=== PATIENT | male | born 1945 | race Caucasian/White ===

== ENCOUNTER → 2021-02-05 09:00 | Outpatient (BNVA) | payer OTHER, SELFPAY | PROVIDERS: Family Provider Emergency Medicine Emergency Medical Services; PCP Emergency Medicine Emergency Medical Services; Visit Provider Nurse Practitioner | DX: Z86.73 Personal history of transient ischemic attack (TIA), and cerebral infarction without residual deficits (principal); I99.8 Other disorder of circulatory system; Z87.891 Personal history of nicotine dependence | CPT/HCPCS: 99204 ==

== ENCOUNTER 2021-03-02 13:19 | Outpatient (CLI) | payer OTHER, SELFPAY ==
--- NOTE | 2021-03-02 13:45 | MR_ITS ---
WS: [id number] MRI HEAD WITHOUT CONTRAST TECHNIQUE: Sagittal T1, T2 axial, T2 axial FLAIR, axial and coronal T1 images, axial susceptibility w eighted imaging, axial diffusion weighted images, and coronal T2 images were obtained. CLINICAL INFORMATION: I99.8 - Other disorder of circulatory system COMPARISON: None. FINDINGS: No evidence of restricted diffusion to suggest acute ischemia. Ventricular system and basal cisterns are patent. Moderate small vessel changes. Moderate parenchymal volume loss. Small vessel changes in the cralos. A few tiny chronic lacunar infarcts in cerebellum. Normal vascular flow voids at the skull base. No e xtra-axial fluid collections. No evidence of mass or mass effect. Mild mucosal thickening in the para nasal sinuses. Mastoid air cells well aerated. Incidental slightly low-lying cerebellar tonsils. Norm al fourth ventricle. No hemosiderin on susceptibly weighted images. Normal optic chiasm and pituitary infundibulum. Moderate symmetric atrophy of the temporal lobes and hippocampal formations. MR/MR head wo con* [id number] IMPRESSION: 1. No evidence of restricted diffusion to suggest acute ischemia. 2. Moderate small vessel changes with moderate parenchymal volume loss. 3. A few tiny chronic lacunar infarcts in the cerebellum. Small vessel changes in the carlos. 4. No hemosiderin on susceptibly weighted images. 5. Moderate symmetric atrophy temporal lobes and hippocampal formations. 6. No other significant findings.
--- NOTE | 2021-03-02 13:45 | MR_ITS ---
WS: [id number] MRA HEAD TECHNIQUE: Axial 3-D TOF images obtained with axial images and axial, sagittal, and coronal 2-D refor matted images. CLINICAL INFORMATION: I99.8 - Other disorder of circulatory system COMPARISON: None. FINDINGS: Dominant left vertebral artery. Poor flow in the tiny right distal vertebral artery. Basilar artery i s patent. Normal vascularity to the DIRECTOR OF PSYCHIATRY territory bilaterally. Both ICAs are patent at the skull base. Mild intracranial atheromatous disease. Mild stenosis right M1 segment. No flow-limiting stenosis. Normal vascularity to the CORNEL and MCA territories bilaterally. MR/MR angio head wo con [id number] IMPRESSION: 1. Dominant distal left vertebral artery. Poor flow in the tiny distal right v ertebral artery. 2. Mild stenosis right proximal M1 segment. 3. No evidence of flow-limiting stenosis or aneurysm. 4. Mild intracranial atheromatous disease.
== END 2021-03-02 13:20 | disposition home or self-care (01) ==
LOC: RADSHAW 13:23
PROVIDERS: PCP Emergency Medicine Emergency Medical Services; Visit Provider Nurse Practitioner
DX: I99.8 Other disorder of circulatory system (principal); G31.9 Degenerative disease of nervous system, unspecified; I63.81 Other cerebral infarction due to occlusion or stenosis of small artery; I70.8 Atherosclerosis of other arteries
CPT/HCPCS: 70544; 70551

== ENCOUNTER 2022-07-19 11:44 | Emergency (ER) | payer OTHER, SELFPAY ==
[2022-07-19 11:59] VITALS: BP 115/57; PULSE 115; TEMP 36.5; O2SAT 92; BMI 25.8
[2022-07-19 13:02] LABS: Basophils % 0.6 %; Eosinophils # 0.1 10^3/uL (0.0-0.8); Eosinophils % 1.2 %; Hematocrit 39.3 % (42.0-52.0); Lymphocytes # 0.9 10^3/uL (0.8-4.8); Mean Corpuscular HGB Conc 30.5 g/dL (30.0-36.0); Mean Corpuscular Hemoglobin 26.3 pg (28.0-34.0); Mean Platelet Volume 9.9 fL (7.4-10.4); Monocytes # 0.8 10^3/uL (0.2-0.9); Monocytes % 10.5 %; Neutrophils # 5.35 10^3/uL (1.8-7.7); Neutrophils % 74.3 %; Nucleated Red Blood Cells % 0 %; Platelet Count 260 10^3/cmm (130-400); Red Blood Count 4.57 10^6/uL (4.1-5.3); Red Cell Distribution Width 16.2 % (12.1-15.1); White Blood Count 7.2 10^3/uL (4.0-10.0)
[2022-07-19 13:13] LABS: INR 1.96 (0.8-1.2)
[2022-07-19 13:14] LABS: Partial Thromboplastin Time 29.5 SECONDS (23.9-36.7)
--- NOTE | 2022-07-19 13:34 | ED_ITS ---
HPI - General Adult General: Chief complaint: General Medical Stated complaint: Cough up blood, blisters on both legs Time Seen by Provider: 07/19/22 13:25 Source: patient Mode of arrival: ambulatory History of Present Illness: 76-year-old male presents emergency room initially started outlying several complaints with Dr. Rizzo basically comes down to is a poorly compensated congestive heart failure. He is on Coumadin for atrial fibrillation over the last year he has intermittently had blood-tinged mucus he has never had that evaluated. He did state he had his INR checked today. He denies any chest pain he is noticing increased swelling in his legs up to the level of the scrotum Shortness of breath with relatively minimal activity Onset (ago): month(s) Severity: moderate Quality: aching Relieving factors: none Exacerbating factors: none Associated symptoms: Reports cough and short of breath; Deny chest pain, confusion, diaphoresis, decreased appetite, dyspnea, fevers/chills, headache(s), malaise, nausea, rash, palpitations, seizures, sync ope, vomiting or weakness Review of Systems Const: Denies: fever(s), chills, fatigue, malaise or diaphoresis ENMT: Denies: throat pain, ear or mastoid pain, nasal discharge or nasal congestion Card: Denies: chest pain, palpitations or syncope Resp: Denies: dyspnea, productive cough, non-productive cough or wheezing GI: Denies: abdominal pain, nausea or vomiting : Denies: flank pain, difficulty urinating, dysuria, urinary frequency or urinary urgency Skin/Breast: Denies: rash or pruritus Neuro: Denies: headache(s) or confusion [facility] ED PFSH: Medical History TIA (transient ischemic attack) Social History Smoking and tobacco status: former smoker History of recent travel: No Physical Exam Const: COMMON NORMALS: no acute distress GENERAL APPEARANCE: cooperative and comfortable ORIENTATION/CONSCIOUSNESS: Yes awake, Yes oriented to person, Yes oriented to place and Yes oriented to time HENMT: COMMON NORMALS: normocephalic, atraumatic and hearing grossly normal bilaterally HEAD & SCALP: normocephalic and atraumatic Resp: COMMON NORMALS: normal respiratory effort, No retractions, No use of accessory muscles and clear to auscultation bilaterally AUSCULTATION: clear to auscultation bilaterally Cardio: COMMON NORMALS: regular rate, regular rhythm and No murmurs present (Cardio) RATE: regular rate RHYTHM: regular rhythm GI: COMMON NORMALS: Soft to palpation and No hepatosplenomegaly present AUSCULTATION: Yes normoactive bowel sounds PALPATION: Yes Soft to palpation, No Tenderness to palpation present (GI), No Guarding due to palpation present (GI) and Yes No hepatosplenomegaly present Extremity: COMMON NORMALS: normal to inspection, capillary refill normal, no clubbing, cyanosis or edema and no calf tenderness GENERAL: Yes edema OTHER: Presacral edema Neuro: SENSORIUM/ORIENTATION: Yes oriented to person, Yes oriented to place and Yes oriented to time Skin: COMMON NORMALS: no rashes or lesions noted GENERAL SKIN EXAM: no rashes or lesions noted Course Vital Signs: Vital signs: Vital Signs Temperature 97.7 F 07/19/22 11:59 Pulse Rate 115 H 07/19/22 11:59 Blood Pressure 115/57 07/19/22 11:59 Pulse Oximetry 92 07/19/22 11:59 Oxygen Delivery Me thod 07/19/22 11:59 MDM - General Adult Medical Decision Making Labs imaging and EKG reviewed as found on the chart. No acute ST changes noted on EKG patient significantly fluid overload. He is under coagulated for goal on his INR. Has had hemoptysis for over a year and despite this his hemoglobin is stable. This can be addressed as an outpatient's most pressing need at this poi nt is getting control of his heart failure. Would recommend he decrease his amlodipine to 5 mg daily to also help decrease his swelling increase Lasix to 40 mg daily for the next 3 days and then recheck with his primary care doctor to reevaluate a BMP and make adjustments as needed for his medication list. Medical Records I reviewed the patient's medical records. Lab Data I reviewed the patient's lab results. 07/19/22 12:55 07/19/22 12:55 Radiology Impressions Chest X-Ray 07/19/22 13:36 Impression: 1. Probable cardiomegaly with bilateral pleural effusions. 2. Atherosclerosis. 3. Artificial cardiac valve. Laboratory Results WBC 7.2 10^3/uL (4.0-10.0) 07/19/22 12:55 RBC 4.57 10^6/uL (4.1-5.3) 07/19/22 12:55 Hgb 12.0 g/dL (11.7-16.6) 07/19/22 12:55 Hct 39.3 % (42.0-52.0) L 07/19/22 12:55 MCV 86.0 fl (80-94) 07/19/22 12:55 MCH 26.3 pg (28.0-34.0) L 07/19/22 12:55 MCHC 30.5 g/dL (30.0-36.0) 07/19/22 12:55 RDW 16.2 % (12.1-15.1) H 07/19/22 12:55 Plt Count 260 10^3/cmm (130-400) 07/19/22 12:55 MPV 9.9 fL (7.4-10.4) 07/19/22 12:55 Neut % (Auto) 74.3 % 07/19/22 12:55 Lymph % (Auto) 13.0 % 07/19/22 12:55 [place] % (Auto) 10.5 % 07/19/22 12:55 Eos % (Auto) 1.2 % 07/19/22 12:55 Baso % (Auto) 0.6 % 07/19/22 12:55 Neut # (Auto) 5.35 10^3/uL (1.8-7.7) 07/19/22 12:55 Lymph # (Auto) 0.9 10^3/uL (0.8-4.8) 07/19/22 12:55 [place] # (Auto) 0.8 10^3/uL (0.2-0.9) 07/19/22 12:55 Eos # (Auto) 0.1 10^3/uL (0.0-0.8) 07/19/22 12:55 Baso # (Auto) 0.0 10^3/uL (0.0-0.1) 07/19/22 12:55 Nucleated RBC % (auto) 0 % 07/19/22 12:55 Nucleated RBCs # 0.0 /100WBC 07/19/22 12:55 PT 22.60 SECONDS (12.1-14.9) H 07/19/22 12:55 INR 1.96 (0.8-1.2) H 07/19/22 12:55 APTT 29.5 SECONDS (23.9-36.7) 07/19/22 12:55 Sodium 140 mmol/L (136-145) 07/19/22 12:55 Potassium 4.5 mmol/L (3.5-5.1) 07/19/22 12:55 Chloride 104 mmol/L (98-107) 07/19/22 12:55 Carbon Dioxide 30 mmol/L (22-29) H 07/19/22 12:55 Anion Gap 10.5 (5-19) 07/19/22 12:55 BUN 28 mg/dL (8-23) H 07/19/22 12:55 Creatinine 1.2 mg/dL (0.7-1.2) 07/19/22 12:55 GFR Calculation Not Reportable 07/19/22 12:55 Glucose 150 mg/dL (65-115) H 07/19/22 12:55 Calculated Osmolality 298 mOsm/kg (285-295) H 07/19/22 12:55 Calcium 8.1 mg/dL (8.5-10.5) L 07/19/22 12:55 Total Bilirubin 0.6 mg/dL (0.15-1.2) 07/19/22 12:55 AST 31 U/L (0-40) 07/19/22 12:55 ALT 18 U/L (0-41) 07/19/22 12:55 Alkaline Phosphatase 94 U/L (40-130) 07/19/22 12:55 NT-Pro-B Natriuret Pep 1345 pg/mL (0-450) H 07/19/22 12:55 Total Protein 4.9 g/dL (6.6-8.7) L 07/19/22 12:55 Albumin 2.7 g/dL (3.5-5.2) L 07/19/22 12:55 Globulin 2.2 g/dL (1.3-4.6) 07/19/22 12:55 Urine Color Yellow (Yellow) 07/19/22 14:00 Urine Appearance Clear (CLEAR) 07/19/22 14:00 Urine pH 5 (5-7) 07/19/22 14:00 Ur Specific Howard 1.020 (1.005-1.030) 07/19/22 14:00 Urine Protein Neg (Negative) 07/19/22 14:00 Urine Glucose (UA) Norm (Normal) 07/19/22 14:00 Urine Ketones Negative (Negative) 07/19/22 14:00 Urine Blood Neg (Negative) 07/19/22 14:00 Urine Nitrate Negative (Negative) 07/19/22 14:00 Urine Bilirubin Neg (Negative) 07/19/22 14:00 Urine Urobilinogen 1 mg/dL (Negative) H 07/19/22 14:00 Ur Leukocyte Esterase Trace (Negative) H 07/19/22 14:00 Urine RBC None /hpf (0-2) 07/19/22 14:00 Urine WBC None /hpf (0-5) 07/19/22 14:00 Ur Squamous Epith Cells None /hpf (0-5) 07/19/22 14:00 Amorphous Sediment Not Reportable 07/19/22 14:00 Urine Bacteria 4+ /hpf (NONE) H 07/19/22 14:00 Hyaline Casts Too numerous to cnt /lpf H 07/19/22 14:00 Discharge Plan Discharge Patient Disposition: Home Clinical Impression: Congestive heart failure (CHF) Condition: Stable Prescriptions: Changed amlodipine 10 mg tablet 5 mg PO DAILY Qty: 30 0RF furosemide 20 mg tablet 40 mg PO QAM Qty: 60 0RF No Action glipizide 5 mg tablet 5 mg PO BID latanoprost 0.005 % drops 1 drp ophthalmic (eye) DAILY metoprolol tartrate 100 mg tablet 100 mg PO BID warfarin 2 mg tablet 2 mg PO DAILY Rx Instructions: take four tab by mouth every monday and take three tab all other days lisinopril 40 mg tablet 40 mg PO DAILY tamsulosin 0.4 mg capsule 0.4 mg PO DAILY atorvastatin [Lipitor] 40 mg tablet 40 mg PO DAILY Qty: 30 3RF Discharge Orders: Discharge ED (Routine); Ordered 07/19/22 Ordered By: Ehsan James Referrals: Sabas Merida, [Primary Care Provider] - Patient Instructions: Opioid Safety, Pain Management Activity Restrictions/Additional Instructions: You are seen today for slight hemoptysis shortness of breath and swelling. You are in poorly compensated heart failure. Would decrease your amlodipine to 5 mg daily and increase your Lasix to 40 mg daily for the next 3 days at that point you should follow-up with your primary care doctor for repeat BMP and reassessment of your medication regimen. Your INR checked today and was slightly subtherapeutic do not recommend any change at this time. Coding Level of Care Code ED Local City Driver for Chg Fwd Exam Detailed
--- NOTE | 2022-07-19 13:36 | XR_ITS ---
WS: [id number] Portable AP upright chest, 07/19/2022 Clinical Data: dyspnea/cough Comparison: None. Findings: There are bilateral pleural effusions with more on the left than the right. The heart is pr obably enlarged. Midline sternotomy sutures are present along with an artificial valve. The aortic ar ch shows calcification. There are no nodules or masses in the lungs. XR/XR chest 1V portable [id number] Impression: 1. Probable cardiomegaly with bilateral pleural effusions. 2. Atherosclerosis. 3. Artificial cardiac valve.
[2022-07-19 13:48] LABS: Alanine Aminotransferase 18 U/L (0-41); Albumin Level 2.7 g/dL (3.5-5.2); Alkaline Phosphatase 94 U/L (40-130); Anion Gap 10.5 (5-19); Aspartate Amino Transferase 31 U/L (0-40); Blood Urea Nitrogen 28 mg/dL (8-23); Calcium 8.1 mg/dL (8.5-10.5); Carbon Dioxide 30 mmol/L (22-29); Chloride 104 mmol/L (98-107); Globulin 2.2 g/dL (1.3-4.6); Glucose 150 mg/dL (65-115); NT Pro B Type Natriuretic Pept 1345 pg/mL (0-450); Osmolality Calculated 298 mOsm/kg (285-295); Potassium 4.5 mmol/L (3.5-5.1); Sodium 140 mmol/L (136-145); Total Bilirubin 0.6 mg/dL (0.15-1.2); Total Protein 4.9 g/dL (6.6-8.7)
[2022-07-19 14:08] LABS: Glucose Urine UA Norm (Normal); Ketones Urine Negative (Negative); Protein Urine Neg (Negative); Urine Appearance Clear (CLEAR); Urine Color Yellow (Yellow); pH Urine 5 (5-7)
[2022-07-19 14:09] LABS: Add Urine Microscopic? YES; Bilirubin Urine Neg (Negative); Blood Urine Neg (Negative); Leukocyte Esterase Urine Trace (Negative); Nitrate Urine Negative (Negative); Urobilinogen Urine 1 mg/dL (Negative)
[2022-07-19 14:15] LABS: Add Urine Culture? Yes; Bacteria Urine 4+ /hpf; Hyaline Casts Urine TOO NUMEROUS TO CNT /lpf
[2022-07-19] MEDS: FUROsemide 10 mg/mL SDV 4mL 40 MG IVP (15:22)
== END 2022-07-19 16:31 | disposition home or self-care (01) ==
PROVIDERS: Emergency Provider Family Medicine; PCP Emergency Medicine Emergency Medical Services
DX: I50.9 Heart failure, unspecified (principal); Z79.84 Long term (current) use of oral hypoglycemic drugs; Z79.01 Long term (current) use of anticoagulants; Z86.73 Personal history of transient ischemic attack (TIA), and cerebral infarction without residual deficits; Z87.891 Personal history of nicotine dependence; I48.91 Unspecified atrial fibrillation
CPT/HCPCS: 36415; 71045; 80053; 81001; 83880; 85025; 85610; 85730; 87077; 87086; 87186; 96374; 99284; J1940

== ENCOUNTER → 2022-09-12 12:00 | Outpatient (BNVA) | payer OTHER, SELFPAY | PROVIDERS: PCP Emergency Medicine Emergency Medical Services; Visit Provider Internal Medicine | DX: I05.9 Rheumatic mitral valve disease, unspecified (principal); I48.91 Unspecified atrial fibrillation; I50.9 Heart failure, unspecified; Z87.891 Personal history of nicotine dependence; Z79.01 Long term (current) use of anticoagulants | CPT/HCPCS: 99204 ==

== ENCOUNTER 2022-09-30 07:26 | Outpatient (CLI) | payer OTHER, SELFPAY ==
--- NOTE | 2022-09-30 | ECG_ITS ---
[facility] Test Date: 2022-09-30 Pat Name: Magno Puente Department: Room: Gender: Male Precast Molder: : 1945 Requested By: Fritz Magaña Order Number: [id number] Khadar MD: Ignacia Malin M.D. Interpretive Statements NAME OF STUDY: LEXISCAN SESTAMIBI STRESS TEST INDICATION: Chest Pain PROCEDURE: At the baseline, the EKG revealed atrial fibrillation with rapid ventricular rate. Diffuse nonspecific T wave changes in the inferior and lateral leads. The baseline heart was 120 bpm with a blood pressue of 125/88 mm of Hg Lexiscan was infused over a period of 20 seconds. A total of 0.4 milligrams of Lexiscan was infused. The stress phase was continued for a total of 5 minutes. Heart rate at the end of the stress phase was 137 bpm with a blood pressure 105/58 mm of Hg. The EKG at the peak infusion revealed no significant changes. Sestamibi was injected 20 seconds after the Lexiscan infusion. Heart rate at the end of the recovery phase was 139 bpm with a blood pressure of 178/59 mm of Hg. CONCLUSION: 1. No significant EKG changes with the LexiScan infusion 2. No LexiScan induced chest pain or cardiac arrhythmia 3. Normal blood pressure and heart rate response 4. Sestamibi/sestamibi perfusion scan pending; see separate report. Electronically Signed On 10-03-2022 0:07:24 CDT by Ignacia Malin M.D. [id number]
[2022-09-30 07:55] VITALS: BMI 24.3
--- NOTE | 2022-09-30 07:56 | NMCV_ITS ---
NM vince perf SPECT r/s* [id number] Magno Puente Age: 77 Gender: M : 1945 Exam Date: 09/30/2022 08:39 Ordering Phys: Fritz Magaña M.D ([email or web address]) Technologist: LIZZIE Dunlap Exam Location: [facility] Indications: CHEST PAIN STRESS TEST Please see separate stress test report in [facility] for full findings IMAGE PROTOCOL Rest/Stress 1 Lexiscan Day Radiopharmaceutical Dose (mCi) Administration Site Administered by Rest: Tc-99m 10.9 IV LIZZIE Dunlap Sestamibi Stress:Tc-99m 33.0 IV LIZZIE Dunlap Sestamibi Rest: 30-Sep-2022 60 Discovery 630 Stress: 30-Sep-2022 30 Discovery 630 0.4mg Lexiscan. Images obtained in supine and prone position. SPECT RESULTS Technical Quality: Excellent Raw Data Analysis: Normal Image Corrections: No attenuation or motion correction applied Summed Stress Score: 3 Summed Rest Score: 2 Summed Difference Score: 2 PERFUSION FINDINGS A small area of decreased tracer uptake was noted in the apical lateral segment and LV apex. Some reversibility was noted in the apical lateral region FUNCTIONAL RESULTS (calculated via Gated SPECT) Stress Image LV EF (%): 54 Stress EDV (mL):84 TID: 1.28 Stress ESV (mL):39 FUNCTIONAL FINDINGS: Segmental wall motion analysis revealed diffuse hypokinesia of the septum IMPRESSIONS 1. Myocardial perfusion imaging revealing a small area of decreased tracer uptake in the apical lateral and LV apical segments with some reversibility, suggesting myocardial scarring with ischemia in the distribution of the left circumflex artery. 2. Normal LV ejection fraction of 54%. 3. LV wall motion analysis revealing diffuse hypokinesia of the septum 4. Normal LV volume 5. Elevated transient ischemic dilatation ratio of 1.28 also may suggest endocardial ischemia. Clinical correlation is recommended Dr Ignacia Malin MD FACC (Electronically Signed) Final Date: 30 September 2022 18:27 S
[2022-09-30] MEDS: regadenoson 0.4 Mg/5 ml Syringe IVP (09:41)
[2022-09-30 10:04] VITALS: BP 117/59; PULSE 132
== END 2022-09-30 07:27 | disposition home or self-care (01) ==
LOC: CDL 07:28
PROVIDERS: PCP Emergency Medicine Emergency Medical Services; Visit Provider Internal Medicine
DX: R07.9 Chest pain, unspecified (principal)
CPT/HCPCS: 36415; 78452; 93017; 96374; A9500; J2785

== ENCOUNTER 2022-10-12 10:57 | Outpatient (CLI) | payer OTHER, SELFPAY ==
--- NOTE | 2022-10-12 11:15 | USCV_ITS ---
Magno Puente Age: 77 Gender: M : 1945 Exam Date: 10/12/2022 11:38 Ordering Phys: Fritz Magaña M.D ([email or web address]) Technologist: SUSAN Exam Location: [facility] [place] Indication: SHORTNESS OF BREATH BP: 114 / 60 HR: 88 Rhythm: Atrial fibrillation Technical Quality: Adequate MEASUREMENTS (Male / Female) Normal Values 2D ECHO LVOT Diameter 2.0 cm LV Ejection Fraction MOD 2C 57.0 % LV Ejection Fraction 2C AL 57.0 % LA Diameter 4.9 cm LA Width 3.2 cm LA Height 5.8 cm RA Width 3.8 cm RA Height 5.2 cm Aorta at Sinotubular Diameter 2.3 cm IVC Diameter 2.0 cm M-MODE Aortic Annulus Diameter 2.5 cm LA Ao Ratio MM 2.0 DOPPLER AV Peak Velocity 205.5 cm/s LVOT Peak Velocity 113.0 cm/s AV Area Cont Eq vti 1.6 cm squared AV Area Cont Eq pk 1.7 cm squared MV Peak Velocity 216.0 cm/s MV Area PHT 3.2 cm squared MV E' Velocity 98.5 cm/s Mitral E to MV E' Ratio 20.7 Mitral E to LV E' Lateral Ratio 20.7 Mitral E to LV E' Septal Ratio 20.7 TR Peak Velocity 275.1 cm/s TR Peak Gradient 30.3 mmHg TR Mean Velocity 243.5 cm/s TR Mean Gradient 24.3 mmHg TR Velocity Time Integral 90.3 cm TV Peak E Velocity 95.0 cm/s Right Atrial Pressure 8.0 mmHg Pulmonary Artery Systolic Pressu 38.3 mmHg PV Peak Velocity 94.0 cm/s RV Acceleration Time 0.1 s RV Ejection Time 0.3 s RV AcT/ET 0.3 FINDINGS Left Ventricle Left ventricle is normal in size. LV systolic function is mildly reduced with EF of 40 to 45%. Mild global hypokinesis is seen. Right Ventricle Dilated. 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 Mean gradient across the mitral valve is 7.5mmHg. This is consistent with moderate mitral stenosis. Aortic Valve Aortic valve is thickened. Mild aortic valve stenosis. Mean gradient across the valve of 9 mmHg and aortic valve area of 1.64 cm squared. Mild aortic regurgitation. Tricuspid Valve Mild tricuspid regurgitation. Pulmonary artery systolic pressure is 35 to 40 mmHg. This is consistent with mild pulmonary hypertension. Pulmonic Valve Trace pulmonic regurgitation. Pericardium Pleural effusion noted. Aorta Normal in size IVC Appears to be dilated CONCLUSIONS LV systolic function is mildly reduced with EF of 40 to 45%. Left atrial dilation RV is dilated and appears to be hypokinetic. 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 Mean gradient across mitral valve is 7.5 mmHg. This is consistent with moderate mitral stenosis Mild aortic stenosis. Mild aortic regurgitation Mild tricuspid regurgitation Mild pulmonary hypertension Trace pulmonic regurgitation Pleural effusion is seen. 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 Fritz Magaña MD (Electronically Signed) Final Date: 22 October 2022 09:55 S
== END 2022-10-12 10:58 | disposition home or self-care (01) ==
LOC: RAD 11:00
PROVIDERS: PCP Emergency Medicine Emergency Medical Services; Visit Provider Internal Medicine
DX: R06.02 Shortness of breath (principal); I08.2 Rheumatic disorders of both aortic and tricuspid valves; I27.20 Pulmonary hypertension, unspecified; J90 Pleural effusion, not elsewhere classified
CPT/HCPCS: 93306

== ENCOUNTER 2022-11-24 08:37 | Outpatient (CLI) | payer OTHER, SELFPAY ==
[2022-11-24] VITALS (16 sets, daily range): BP systolic 94–137; BP diastolic 49–82; PULSE 74–101; RESP 13–27; TEMP 36.8; O2SAT 91–96; BMI 22.8
--- NOTE | 2022-11-24 09:00 | XACV_ITS ---
Exam Room: 2 Ht: 175 cm Wt: 70 kg BSA: 1.85 m2 Gender: Male : 1945 Any Known Allergies: No known allergies Exam Priority: Routine Procedure(s): Procedure Description: Diagnostic procedure Procedure Description: Left Heart Catheterization Procedure Description: Coronary Angiography Diagnostic Cath Status: Elective Diagnostic Findings * INDICATION: Dyspnea on exertion/ LV dysfucntion/ abnormal stress test. * No significant disease noted in the Left Main, Left Anterior Descending, Right, or Circumflex coronary arteries. * First Obtuse Marginal Branch Segment: moderate 50% stenosis, KIRAN: 3 flow. * Coronary angiography shows right dominance. Conclusions 1. 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 2. No significant disease noted in the Left Main, Left Anterior Descending, Right, or Circumflex coronary arteries. Recommendations * Aggressive risk factor modification. * Outpatient cardiology follow-up in 2 to 4 weeks. Interventional RX Recommendation: medical therapy and/or counseling Diagnostic RX Recommendation: medical therapy and/or counseling Anticoagulation: Heparin Pressures Phase:Rest AO : 69 / 57 ( 63 ) @ 11:38:00 AM 107 / 63 ( 77 ) @ 11:46:00 AM 109 / 58 ( 75 ) @ 11:46:00 AM LV : 127 / -8 / 20 @ 11:45:00 AM 123 / -8 / 13 @ 11:45:00 AM 127 / -7 / 13 @ 11:46:00 AM Valves Phase:DefaultPhase AV : 20.0 @ 10:54:27 AM 20.0 @ 10:54:27 AM AV Mean Gradient: 19.0 @ 10:54:27 AM Clinical Evaluation EBL: 5mL-10mL Procedural Details Procedure Consent Obtained. Admit Source: Out Patient. Pre-Procedure Time Out. Identified patient by full name and date of as verbalized by the patient/guarantor. Does the consent match the physician's order: Yes. Accurate & Complete Informed Consent: Yes. Inpatient/Outpatient History & Physical on Chart: Yes. If H&P is completed, is and addenduem needed: No; If yes, is the addendum complete: Yes. Visualize and Verify Site with Patient/Guarantor: N/A. Relevant Radiology Images available: Yes. The risks, benefits, and alternatives of sedation and/or procedure were discussed by physician. The patient agrees to continue. Procedure started. [facility] Clinical Fraility Score: 4: Vulnerable. Flash Drier Operator Indications: LV Dysfunction. Chest Pain Symptom Assessment: Typical Angina Symptoms. Correct patient, site and procedure confirmed by cath team. Current diagnosis: LV dysfunction, dyspnea on exertion, abnormal stress test. PERRLA. Strong, equal hand creative services specialist bilaterally. Lungs clear x 5 lobes. IV Site on Arrival: 20 gauge in the right anticubital. IV Fluids: 0.9% NaCl at 75ml/hr. 0 mL infused prior to bed laborer. Pre Procedural Pulses: bilateral posterior tibial was 1+. Pre Procedural Pulses: bilateral dorsalis pedis was 2+. Pre Procedural Pulses: bilateral radial was 3+. Oxygen started at 2liters/min via nasal canula. right radial was prepped with chloroprep then draped in the usual sterile fashion. right groin was prepped with chloroprep then draped in the usual sterile fashion. Physician notified. Baseline sample Acquired. HR: 110 BPM. Physician arrived. Physician scrubbed in. Immediate Pre-Procedure Time Out. Correct Patient: Yes; Correct Procedure: Yes; Correct Site: Yes; Correct Patient Position: Yes; Correct Supplies: Yes; Dried Flammable Prep: Yes; Blood Products Available: No;. Lidocaine 1% infiltrated to the right radial. Arterial access obtained. Hand injection of contrast through sheath. A 5 slovenian TIG catheter in over glidewire. Glidewire out. Multiple views taken of left coronary artery. Catheter redirected to the RCA. Multiple views taken of right coronary artery. Standard exchange wire in through catheter. Catheter seated in left atrium. Wire out. Pullback taken: LA 26/35(24); LV 127/-9,20; Mean: 12mmHg, DFP: 11sec/min; HR: 96 BPM; SpO2: 94%. EDP Sample taken: LV 123/-9,13; HR: 91 BPM; SpO2: 94%. Pullback taken: LV 127/-8,13; AO 107/63(77); Mean: 19mmHg, Peak to Peak: 20mmHg, SEP: 16sec/min; HR: 100 BPM; SpO2: 95%. Catheter out over exchange wire. Physician review of cine films. Standard exchange wire out. Physician scrubbed out. Post Procedure: Pulses reassessed and unchanged. PERRLA. Strong, equal hand creative services specialist bilaterally. No VTE prophylaxis required. Medication's Wasted: Lidocaine 1% = 2 mL. Medication's Wasted: Nitro = 49.8 mg. Medication's Wasted: Heparin = 1000 units. Medication's Wasted: Other = Versed 1 mg. Medication's Wasted: Other = Fentanyl 75mcg. Total IV fluids: 40 mL. Post-op diagnosis: Moderate OM 1 Stenosis, Medical therapy. Complications: None. Estimated blood loss: 5mL-10mL. Responsiveness - Normal response to verbal stimuli; alert and oriented, PERRLA. Airway - Unaffected, no intervention required; spontaneous ventilation. Circulation: W/N/L, pulses unchanged. Nausea/Vomiting: No. A TR Band was successful obtaining hemostatsis at the Right Radial artery insertion site. Procedure completed. Patient transferred by bed to 1st floor. Vital chart was stopped. Access Site Site: Right Radial artery Sheath Size: 6 Fr Hemostasis Method: TR Band Hemostasis Success: Successful Procedure Medications Start: 10:17 AM Stop: 10:17 AM Medication: Versed 1 mg and Fentanyl 25 mcg Route: I.V. Start: 10:29 AM Stop: 10:29 AM Medication: Nitrogylcerin Amount: 200 mcg Route: I.A. Start: 10:37 AM Stop: 10:37 AM Medication: Heparin Amount: 5000 units Route: I.V. I, the attending physician, have reviewed and verified all procedure medications. Yes, all medications given per verbal order History/Risk Factors Hypertension: No Dyslipidemia: No Peripheral Arterial Disease (PAD): No Myocardial Infarction (IA): No Obesity: No Renal Disease: No Tobacco Use: Former Prior Interventions PCI: No CABG: No Valve Surgery: No Report Signatures Finalized by Fritz Magaña MD on 12/08/2022 12:08 PM
[2022-11-24] MEDS: aspirin 325 mg Tablet PO (09:17)
[2022-11-24] MEDS: diphenhydrAMINE 50 mg Capsule PO (09:17)
[2022-11-24 09:22] LABS: Basophils % 0.6 %; Eosinophils # 0.2 10^3/uL (0.0-0.8); Eosinophils % 2.8 %; Hematocrit 41.8 % (42.0-52.0); Hemoglobin 12.7 g/dL (11.7-16.6); Lymphocytes # 1.9 10^3/uL (0.8-4.8); Lymphocytes % 26.2 %; Mean Corpuscular HGB Conc 30.4 g/dL (30.0-36.0); Mean Corpuscular Hemoglobin 26.5 pg (28.0-34.0); Mean Corpuscular Volume 87.1 fl (80-94); Mean Platelet Volume 11.1 fL (7.4-10.4); Monocytes # 0.7 10^3/uL (0.2-0.9); Monocytes % 10.2 %; Neutrophils % 59.8 %; Nucleated Red Blood Cells % 0 %; Platelet Count 214 10^3/cmm (130-400); Red Cell Distribution Width 16.1 % (12.1-15.1); White Blood Count 7.2 10^3/uL (4.0-10.0)
[2022-11-24 09:52] LABS: Anion Gap 15.1 (5-19); Blood Urea Nitrogen 22 mg/dL (8-23); Calcium 9.2 mg/dL (8.5-10.5); Carbon Dioxide 28 mmol/L (22-29); Chloride 105 mmol/L (98-107); Glucose 104 mg/dL (65-115); Osmolality Calculated 302 mOsm/kg (285-295); Potassium 4.1 mmol/L (3.5-5.1); Sodium 144 mmol/L (136-145)
--- NOTE | 2022-11-24 10:16 | W.PM.OPSFHP ---
Same Day Surgery H&P Indication for Procedure/HPI DATE OF PROCEDURE: November 24, 2022 CHIEF COMPLAINT/INDICATIONFOR SURGICAL PROCEDURE: Dyspnea on exertion/ LV dysfucntion/ abnormal stress test PREOP DIAGNOSIS: Dyspnea on exertion/ LV dysfucntion/ abnormal stress test PLANNED PROCEDURE: Operation Date: 11/24/22 10:00 Proposed Procedures p [facility] 49087,I05.9, I48.91, R94.39(Left) - Fritz Magaña M.D Possible percutaneous coronary intervention 77-year-old man medical history of hypertension,atrial fibrillation, bioprosthetic mitral valve replacement has been having worsening dyspnea on exertion. He had echocardiogram done that showed mildly reduced LV systolic function. Stress test was abnormal. Plan for coronary angiogram with possible percutaneous coronary intervention. Medications/Allergies* Home Medications Medication Instructions Recorded Confirmed Type glipizide 5 mg tablet 5 mg PO BID 02/05/21 11/24/22 History latanoprost 0.005 % eye drops 1 drp ophthalmic (eye) DAILY 02/05/21 11/24/22 History lisinopril 40 mg tablet 40 mg PO DAILY 02/05/21 11/24/22 History metoprolol tartrate 100 mg tablet 100 mg PO BID 02/05/21 11/24/22 History tamsulosin 0.4 mg capsule 0.4 mg PO DAILY 02/05/21 11/24/22 History Multivitamin PO 09/12/22 History apixaban 5 mg tablet (Eliquis) 5 mg PO BID 09/12/22 11/24/22 History aspirin 81 mg tablet,delayed 81 mg PO DAILY 09/12/22 11/24/22 History release calcium citrate 315 mg-vitamin D3 1 tab PO DAILY 09/12/22 11/24/22 History 5 mcg (200 unit) tablet (Calcium Citrate + D) pravastatin 40 mg tablet 40 mg PO DAILY 09/12/22 11/24/22 History Allergies/Adverse Reactions Allergy/AdvReac Type Severity Reaction Status Date / Time No Known Allergies Allergy Verified 09/12/22 12:36 Current Medications: Generic Name Dose Route Start Last Admin Trade Name Freq PRN Reason Stop Dose Admin Sodium Chloride 1,000 mls @ 50 mls/hr 11/24/22 09:00 11/24/22 09:17 Sodium Chloride 0.9% IV 11/25/22 04:59 Not Given .Q20H ONE Pertinent History/Comorbid Conditions* Medical History (Updated 09/12/22 @ 13:03 by Fritz Magaña M.D) Atrial fibrillation Congestive heart failure Mitral valve disease TIA (transient ischemic attack) Social History Smoking and tobacco status: former smoker Pertinent Exam Findings alert, oriented x 3, clear to auscultation bilaterally and regular rate & rhythm Conscious Sedation Assessment PATIENT ASSESSED PRIOR TO SEDATION, WITH NO CHANGE NOTED: Yes AIRWAY EVAL/ANESTHESIA PLAN: normal airway, ASA III, Local Anesthesia, Risks, benefits & alternatives of sedation and/or procedure discussed and Patient agrees to continue as planned ADDITIONAL INFORMATION: Moderate sedation Recommendations Surgery/Procedure today (Left heart cath with possible percutaneous coronary intervention) Coding Level of Care Code Acute Code for Chg Fwd Diagnoses
[2022-11-24 12:10] LABS: Glucose Point of Care 89 mg/dL (70-110)
== END 2022-11-24 16:15 | disposition home or self-care (01) ==
LOC: CCL 08:37 → CSU 12:12
PROVIDERS: PCP Emergency Medicine Emergency Medical Services; Visit Provider Internal Medicine
DX: R94.39 Abnormal result of other cardiovascular function study (principal); I11.0 Hypertensive heart disease with heart failure; I48.91 Unspecified atrial fibrillation; Z79.82 Long term (current) use of aspirin; I50.9 Heart failure, unspecified; Z95.3 Presence of xenogenic heart valve; R06.09 Other forms of dyspnea; Z87.891 Personal history of nicotine dependence
CPT/HCPCS: 36415; 36416; 80048; 82962; 85025; 93458; 96365; 99152; 99153; C1769; C1887; C1894; J1644; J2250; J3010; J3490; J7030; Q0163; Q9967

== ENCOUNTER → 2022-11-30 11:04 | Outpatient (BNVA) | payer OTHER, SELFPAY | PROVIDERS: PCP Emergency Medicine Emergency Medical Services; Visit Provider Internal Medicine Pulmonary Disease | DX: J90 Pleural effusion, not elsewhere classified (principal); I05.9 Rheumatic mitral valve disease, unspecified; I48.91 Unspecified atrial fibrillation; I50.9 Heart failure, unspecified; R06.09 Other forms of dyspnea; I27.20 Pulmonary hypertension, unspecified; Z87.891 Personal history of nicotine dependence | CPT/HCPCS: 71046; 99204 ==

== ENCOUNTER → 2022-12-06 12:44 | Outpatient (BNVA) | payer OTHER, SELFPAY | PROVIDERS: PCP Emergency Medicine Emergency Medical Services; Visit Provider Nurse Practitioner Family | DX: I25.10 Atherosclerotic heart disease of native coronary artery without angina pectoris (principal); Z87.891 Personal history of nicotine dependence | CPT/HCPCS: 36415; 80048; 99214 ==

== ENCOUNTER → 2023-01-30 09:05 | Outpatient (BNVA) | payer OTHER, SELFPAY | PROVIDERS: PCP Emergency Medicine Emergency Medical Services; Visit Provider Internal Medicine Pulmonary Disease | DX: J90 Pleural effusion, not elsewhere classified (principal); I50.20 Unspecified systolic (congestive) heart failure; I48.91 Unspecified atrial fibrillation; I05.9 Rheumatic mitral valve disease, unspecified; I27.20 Pulmonary hypertension, unspecified; Z87.891 Personal history of nicotine dependence; Z91.09 Other allergy status, other than to drugs and biological substances | CPT/HCPCS: 99214 ==

== ENCOUNTER → 2023-03-13 14:38 | Outpatient (BNVA) | payer OTHER, SELFPAY | PROVIDERS: PCP Emergency Medicine Emergency Medical Services; Visit Provider Internal Medicine | DX: I05.0 Rheumatic mitral stenosis (principal); I48.91 Unspecified atrial fibrillation; I50.9 Heart failure, unspecified; Z87.891 Personal history of nicotine dependence | CPT/HCPCS: 99214 ==

== ENCOUNTER 2023-03-17 10:13 | Outpatient (CLI) | payer OTHER, SELFPAY ==
--- NOTE | 2023-03-17 10:30 | CT_ITS ---
WS: [id number] CT chest wo con [id number] HISTORY: follow up pleural effusions TECHNIQUE: Axial imaging performed through the thorax. Coronal and sagittal reformats are submitted. All CT scans at [facility] use at least one of these dose optimization techniques: automated exposure control; mA and/or kV adjustment per patient size (includes targeted exams where dose is mat ched to clinical indication); or iterative reconstruction. CONTRAST: None DLP: 243.47 mGy.cm COMPARISON: 08/02/2022 Lungs and central airway: Spiculated subsolid opacification at the RIGHT apex measures 2.1 x 2.1 cm. Similar to the prior study without significant increase in size. Resolved pulmonary edema and atelect asis at the LEFT lung base. Pleura: Small bilateral layering pleural effusions, RIGHT greater than LEFT. Pleural effusions have m oderately improved in size since the prior study. Heart and pericardium: Marked cardiomegaly. Prior mitral valve prosthesis. Prior CABG. No pericardial effusion. There is dense calcification along the aortic valve plane. Mediastinum and ulises: Small mediastinal and hilar lymph nodes. These may be reactive. No obvious prog ression of lymph node burden. Vessels: Moderate atherosclerosis aorta. No aneurysm. Pulmonary arteries mildly dilated. Chest wall and lower neck: Prior CABG. Upper abdomen: Severe atherosclerotic calcification in the splenic artery and cyst suprarenal aorta. Low-attenuation masses associated with the upper pole of each kidney. The largest on the LEFT is 1.2 cm. Cannot be further characterized without IV contrast. These are likely cysts. Osseous structures: L1 compression fracture superior endplate by 10%. IMPRESSION: 1. Small bilateral pleural effusions with moderate improvement since 08/02/2022. 2. Spiculated subsolid opacification RIGHT apex. Subsolid opacification measures 2.1 x 2.1 cm and has not increased in size since the most recent exam. Recommend continued close follow-up to exclude mal ignancy. PET/CT imaging may also be of benefit at this time. Otherwise follow-up chest CT in 3 months . 3. Marked cardiac enlargement and prior CABG. 4. Significant atherosclerosis thoracic and suprarenal aorta and splenic artery.
== END 2023-03-17 10:14 | disposition home or self-care (01) ==
PROVIDERS: PCP Emergency Medicine Emergency Medical Services; Visit Provider Internal Medicine Pulmonary Disease
DX: J90 Pleural effusion, not elsewhere classified (principal)
CPT/HCPCS: 71250; 99214

== ENCOUNTER 2023-04-01 05:34 | Outpatient (CLI) | payer OTHER, SELFPAY ==
--- NOTE | 2023-04-01 07:30 | PETR_ITS ---
PROCEDURE INFORMATION: Exam: PET/CT Skull Base to Mid-thigh Exam date and time: 04/01/2023 8:04 AM Age: 77 years old Clinical indication: Abnormal findings on lung imaging; Additional info: Abnormal finding on lung imaging LABS AND CLINICAL REPORTS: Glucose: 109 mg/dl Treatment strategy for malignancy (PET staging): Initial Staging (PI) TECHNIQUE: Imaging protocol: Following at least four-hour fasting and following the injection of radiopharmaceutical, low dose CT images were obtained. Then, PET images were obtained. Attenuation corrected images were constructed using the CT scan. Fused images of PET and CT were reviewed. The standardized uptake values (SUV) reported below are maximum values within a region of interest, expressed in gm/ml. Exam includes orbital meatal line to mid-thigh. Radiopharmaceutical: 12.05 mCi F-18 FDG (Fluorodeoxyglucose), IV. Time of imaging post radiopharmaceutical administration: 1 hour Injection site: Not specified COMPARISON: Chest x-ray 11/30/2022, CT chest con [id number] 03/17/2023 10:57 AM, CT chest 08/02/2022 FINDINGS: Brain: Visualized brain has normal physiologic uptake. Pharynx: No abnormal uptake. Larynx: No abnormal uptake. Lungs, pleura and trachea: An ill-defined subsolid lobulated nodular density in the right upper lobe is partially obscured by respiratory motion artifact measuring approximately 1.9 x 1.7 cm on series 3, image 42 similar to the prior CT, SUV max 1.4. This nodule is characterized primarily by ground-glass density with a small, approximately 5 mm solid component at its lateral aspect. This nodule similar in appearance since at least 08/02/2022 allowing for slight differences in measurement technique between the current and prior exams. Similar moderate large right and moderate left pleural effusions. A left lower lobe calcified granuloma is noted. Heart: Normal physiologic uptake. A prosthetic mitral valve is present. Mediastinal space: No abnormal uptake. Liver: No abnormal uptake. Gallbladder and bile ducts: No abnormal uptake. Pancreas: No abnormal uptake. Spleen: No abnormal uptake. Adrenal glands: No abnormal uptake. Kidneys and ureters: Normal physiologic uptake. There are rounded low-density non radiotracer avid structures in the bilateral kidneys compatible with simple cysts for example arising from the posterior left renal inferior pole measuring 2.1 cm in diameter on series 3, image 99. Stomach and bowel: No abnormal uptake. Intraperitoneal and retroperitoneal spaces: There is a small amount of free fluid in the pelvis. Reproductive: Moderate prominence of the prostate gland without elevated uptake. Vasculature: No abnormal uptake. There are diffuse atherosclerotic changes. Lymph nodes: No abnormal uptake. Mildly prominent mediastinal lymph nodes are not radiotracer avid for example in the precarinal space measuring 1.7 cm in diameter on CT series 3, image 49. There are calcified left hilar, right hilar and subcarinal lymph nodes. Bones/joints: No abnormal uptake in the visualized axial and appendicular skeleton. [id number] diffuse degenerative vertebral body spondylosis is noted. There is a moderate similar appearing superior endplate compression fracture of L1. No acute fracture is identified. Sternotomy wires are present. Soft tissues: No abnormal uptake in the visualized head, neck, chest, abdomen, pelvis, and extremities. There is a similar coiled wire like density which may represent a fragment of a lead in the region of the anterior inferior diaphragm adjacent to the heart on the left with extension into the rectus abdominus musculature in the upper abdomen. METRICS: Mediastinal blood pool: SUV max 2.7 PET/PET skulltothigh SUBSEQ [id number] IMPRESSION: 1. No evidence of radiotracer avid malignancy. 2. Similar right upper lobe nodule without significant uptake (SUV max 1.4). Although lack of significant uptake favors a benign etiology, evaluation of subsolid nodules can be limited by PET-CT. This nodule appears stable since at least 08/02/2022. Consider annual CT Chest surveillance for 5 years. (Reference: Pancho) 3. Moderate to large right and moderate left pleural effusions appear similar. 4. Similar mild prominence of mediastinal lymph nodes without elevated uptake which favors a benign etiology. 5. Simple appearing bilateral renal cysts. 6. Additional nonurgent findings as detailed above. REFERENCES: Pancho Miranda, et al. Guidelines for Management of Incidental Pulmonary Nodules Detected on CT Images: From the Fleischner Society 2017. Radiology. 2017;284(1):228-243.
== END 2023-04-01 05:35 | disposition home or self-care (01) ==
LOC: RAD 04-03 05:34
PROVIDERS: PCP Emergency Medicine Emergency Medical Services; Visit Provider Internal Medicine Pulmonary Disease
DX: R91.8 Other nonspecific abnormal finding of lung field (principal); J90 Pleural effusion, not elsewhere classified
CPT/HCPCS: 78815; A9552

== ENCOUNTER → 2023-04-05 11:08 | Outpatient (BNVA) | payer OTHER, SELFPAY | PROVIDERS: PCP Emergency Medicine Emergency Medical Services; Visit Provider Internal Medicine Pulmonary Disease | DX: I50.22 Chronic systolic (congestive) heart failure (principal); I05.9 Rheumatic mitral valve disease, unspecified; I27.20 Pulmonary hypertension, unspecified; J90 Pleural effusion, not elsewhere classified; R91.1 Solitary pulmonary nodule; Z87.891 Personal history of nicotine dependence | CPT/HCPCS: 99214 ==

== ENCOUNTER 2023-04-13 10:35 | Outpatient (CLI) | payer OTHER, SELFPAY ==
--- NOTE | 2023-04-13 11:00 | USCV_ITS ---
Magno Puente Age: 77 Gender: M : 1945 Exam Date: 04/13/2023 10:47 Ordering Phys: Fritz Magaña M.D ([email or web address]) Technologist: Kristina Abreu Exam Location: [facility] [place] Indication: MV replacement - rheumatic HD BP: 145 / 82 HR: 75 Rhythm: Sinus Technical Quality: Adequate MEASUREMENTS (Male / Female) Normal Values 2D ECHO LV Diastolic Diameter PLAX 5.2 cm 4.2 - 5.9 / 3.9 - 5.3 cm LV Systolic Diameter PLAX 3.9 cm IVS Diastolic Thickness 0.9 cm 0.6 - 1.0 / 0.6 - 0.9 cm IVS Systolic Thickness 1.3 cm LVPW Diastolic Thickness 1.1 cm 0.6 - 1.0 / 0.6 - 0.9 cm LVPW Systolic Thickness 1.5 cm LVOT Diameter 2.0 cm LV Ejection Fraction 2D Teich 42.2 % LV Ejection Fraction MOD 2C 55.1 % LV Ejection Fraction 2C AL 57.4 % LA Diameter 5.4 cm LA Width 4.8 cm LA Height 4.9 cm RA Width 4.2 cm RA Height 3.4 cm Aorta at Sinotubular Diameter 2.5 cm IVC Diameter 3.0 cm M-MODE Aortic Annulus Diameter 3.1 cm LA Ao Ratio MM 1.8 MV E Point Septal Separation 1.6 cm DOPPLER AV Peak Velocity 173.0 cm/s LVOT Peak Velocity 108.0 cm/s AV Area Cont Eq vti 1.9 cm squared AV Area Cont Eq pk 2.1 cm squared MV Peak Velocity 256.0 cm/s MV Area PHT 2.6 cm squared Mitral E to A Ratio 13.7 MV E' Velocity 113.5 cm/s Mitral E to MV E' Ratio 26.7 Mitral E to LV E' Lateral Ratio 28.4 Mitral E to LV E' Septal Ratio 25.1 TR Peak Velocity 297.8 cm/s TR Peak Gradient 35.5 mmHg Right Atrial Pressure 8.0 mmHg Pulmonary Artery Systolic Pressu 43.5 mmHg PV Peak Velocity 87.0 cm/s RV Acceleration Time 0.1 s RV Ejection Time 0.3 s RV AcT/ET 0.4 FINDINGS Left Ventricle Left ventricle is normal in size. LV systolic function is mild to moderately reduced with EF of 40-45%. Mild to moderate global hypokinesis is seen. Right Ventricle Normal in size and function Right Atrium Normal in size Left Atrium Normal in size Mitral Valve Bioprosthetic mitral valve is seen. Moderate mitral stenosis with mean gradient across mitral valve of 7.5 mmHg. Mild to moderate mitral regurgitation. Aortic Valve Structurally normal aortic valve. No significant stenosis. Mild aortic regurgitation Tricuspid Valve Mild tricuspid regurgitation. RVSP is 45 to 50 mmHg. This is consistent with moderate pulmonary hypertension Pulmonic Valve Not well visualized Pericardium Normal Aorta Normal in size IVC Dilated CONCLUSIONS LV systolic function is mild to moderately reduced with EF of 40 to 45%. Moderate mitral stenosis with mean gradient of 7.5 mmHg. Mild to moderate mitral regurgitation Mild aortic regurgitation Mild tricuspid regurgitation. Moderate pulmonary hypertension IVC is dilated. Compared to prior echocardiogram from 09/2022, no significant changes are seen Fritz Magaña MD (Electronically Signed) Final Date: 23 April 2023 12:17 S
== END 2023-04-13 10:36 | disposition home or self-care (01) ==
PROVIDERS: PCP Emergency Medicine Emergency Medical Services; Visit Provider Internal Medicine
DX: I05.0 Rheumatic mitral stenosis (principal); I05.9 Rheumatic mitral valve disease, unspecified
CPT/HCPCS: 93306

== ENCOUNTER → 2023-08-29 08:08 | Outpatient (BNVA) | payer OTHER, SELFPAY | PROVIDERS: PCP Emergency Medicine Emergency Medical Services; Referring Provider Emergency Medicine Emergency Medical Services; Visit Provider Surgery | DX: K92.2 Gastrointestinal hemorrhage, unspecified | CPT/HCPCS: 99204 ==

== ENCOUNTER 2023-08-30 09:20 | Outpatient (CLI) | payer OTHER, SELFPAY | END 2023-08-30 09:21 | disposition home or self-care (01) | LOC: LAB 09:21 | PROVIDERS: PCP Emergency Medicine Emergency Medical Services; Visit Provider Surgery | DX: R19.7 Diarrhea, unspecified (principal) | CPT/HCPCS: 82274 ==

== ENCOUNTER 2023-09-14 09:32 | Day surgery (SDC) | payer OTHER, SELFPAY ==
[2023-09-14 10:06] VITALS: BP 146/83; PULSE 81; RESP 16; TEMP 36.4; O2SAT 97; BMI 22.6
--- NOTE | 2023-09-14 10:13 | P.HPUD_ITS ---
Surgery/Procedure H&P Update DATE OF PROCEDURE: September 14, 2023 DATE H&P PERFORMED: 08/29/23 H&P UPDATE INFORMATION: I have reviewed H&P completed within last 30 days, I have examined patient prior to procedure, No changes to prior documentation and H&P is in [facility] EMR on date indicated PLANNED PROCEDURE: Operation Date: 09/14/23 11:00 Proposed Procedures p [id number] egd K92.2(Not Applicable) - Chris Robles MD
--- NOTE | 2023-09-14 10:13 | W.PM.OPSUD ---
Surgery/Procedure H&P Update DATE OF PROCEDURE: September 14, 2023 DATE H&P PERFORMED: 08/29/23 H&P UPDATE INFORMATION: I have reviewed H&P completed within last 30 days, I have examined patient prior to procedure, No changes to prior documentation and [place] is in [facility] on date indicated PLANNED PROCEDURE: Operation Date: 09/14/23 11:00 Proposed Procedures p [id number] egd K92.2(Not Applicable) - Chris Robles MD
[2023-09-14] MEDS: sodium chloride 0.9% 1,000 ML 30 ML IV (10:15)
[2023-09-14 10:24] LABS: Glucose Point of Care 112 mg/dL (70-110)
--- NOTE | 2023-09-14 10:24 | ANES.PREANE2 ---
Pre-Anesthetic Assessment Height/Weight: Height 1.75 m Weight 69.4 kg Temp Pulse Resp BP Pulse Ox O2 Del Method 97.6 F 81 16 146/83 97 Room Air 09/14/23 10:06 09/14/23 10:06 09/14/23 10:06 09/14/23 10:06 09/14/23 10:06 09/14/23 10:06 Preop Diagnosis: GI bleeding Operation Date: 09/14/23 11:00 Proposed Procedures p [id number] egd K92.2(Not Applicable) - Chris Robles MD Familial anesthetic complications: NONE Was Beta Jose taken within 24 hours: Yes Was Clonidine taken within 24 hours: N/A Last intake: Intake Last Liquid Date 09/13/23 Last Liquid Time 23:00 Last Solid Date 09/13/23 Last Solid Time 20:00 Social Alcohol (occassional) and Tobacco cigars and pipes pack(s) per day stopped smoking over 40 years ago Exam alert, oriented x 3, clear to auscultation bilaterally and regular rate & rhythm Airway Submandibular: within normal limits Cervical ROM: within normal limits (occassional neck pain no diff with bending) Mallampati: Class II Dentition: partials Comments: Comments: upper History/ROS No significant history except as noted Pulmonary Shortness of Breath (when in Afib and moving around up steps) CV/HEM Atrial Fibrillation, Coronary Artery Disease and Hypertension Had mitral valve replacement 2014. Chronic Renal Insufficiency Hepatic None reported GI None reported Metabolic Diabetes Mellitus NIDDM controlled well with medication Musc/skel Lower Back Pain and Osteoarthritis/DJD Neuropsych None reported Anesthetic Plan ASA status: 3 Anesthesia: Anesthesia Evaluation Medications/Allergies Home Medications Medication Instructions Recorded Confirmed Last Taken Type glipizide 5 mg tablet 5 mg PO BID 02/05/21 09/13/23 09/13/23 History latanoprost 0.005 % eye drops 1 drp ophthalmic (eye) DAILY 02/05/21 09/13/23 09/13/23 History lisinopril 40 mg tablet 40 mg PO DAILY 02/05/21 09/13/23 09/13/23 History metoprolol tartrate 100 mg tablet 100 mg PO BID 02/05/21 09/13/23 09/14/23 History tamsulosin 0.4 mg capsule 0.4 mg PO DAILY 07/09/13/23 09/13/23 History amlodipine 10 mg tablet 5 mg (1/2 x 10 mg) PO DAILY #30 07/19/22 09/13/23 09/14/23 Rx tabs furosemide 20 mg tablet 40 mg (2 x 20 mg) PO QAM #60 tabs 07/19/22 09/13/23 09/13/23 Rx Multivitamin 1 tab PO DAILY 09/12/22 09/13/23 09/13/23 History apixaban 5 mg tablet (Eliquis) 5 mg PO BID 09/12/22 09/13/23 09/12/23 08:00 History aspirin 81 mg tablet,delayed 81 mg PO DAILY 09/12/22 09/13/23 09/13/23 History release calcium citrate 315 mg-vitamin D3 1 tab PO DAILY 09/12/22 09/13/23 09/13/23 History 5 mcg (200 unit) tablet (Calcium Citrate + D) pravastatin 40 mg tablet 40 mg PO DAILY 09/12/22 09/13/23 09/13/23 History Allergies Allergy/AdvReac Type Severity Reaction Status Date / Time No Known Allergies Allergy Verified 09/13/23 09:21 Current Medications Generic Name Dose Route Start Last Admin Trade Name Freq PRN Reason Stop Dose Admin Sodium Chloride 1,000 mls @ 30 mls/hr 09/14/23 10:00 09/14/23 10:15 Sodium Chloride 0.9% IV 09/15/23 09:59 30 mls/hr .Q24H AYDE Administration PFSH Anesthesia Medical History (Updated 08/29/23 @ 17:41 by Chris Robles MD) Coronary artery disease Congestive heart failure Atrial fibrillation Mitral valve disease TIA (transient ischemic attack) Social History (Updated 08/29/23 @ 08:33 by Lamar Kline) Smoking and tobacco/nicotine status: former use of tobacco/nicotine Quit status (tobacco/nicotine): has quit using Year quit tobacco: 1980 Former quit date comment: 5 cigars daily X 20 years Alcohol intake: current Alcohol intake frequency: 0-2 Drinks per Day Substance/Drug Use: never Data Anesthesia Cardiac Studies: Echocardiogram 04/13/23 Sestamibi Stress Test (Cardiology) 09/30/22
[2023-09-14 10:51] VITALS: BP 100/47; PULSE 65; RESP 18; TEMP 36.2; O2SAT 99
[2023-09-14 11:05] VITALS: BP 97/47; PULSE 66; RESP 16; TEMP 36.2; O2SAT 98
[2023-09-14 11:14] VITALS: BP 110/62
--- NOTE | 2023-09-14 12:15 | ANE.PACU2 ---
Inpatient post-anesthesia follow up: Airway intact: Yes Vital signs: Temperature 97.1 F Pulse Rate 66 Respiratory Rate 16 Blood Pressure 110/62 Pulse Oximetry 98 Oxygen Delivery Me thod Room Air Oxygen Flow Rate 2 Fraction of Inspir ed Oxygen Hydration adequate: Yes Nausea and vomiting: No Pain level: 1 Mental status: Baseline
== END 2023-09-14 12:10 | disposition home or self-care (01) ==
PROVIDERS: PCP Emergency Medicine Emergency Medical Services; Visit Provider Surgery
PROC: 0DJ08ZZ Inspection of Upper Intestinal Tract, Via Natural or Artificial Opening Endoscopic (ICD-10-PCS; CPT 43235; principal; 2023-09-14 11:00)
DX: K44.9 Diaphragmatic hernia without obstruction or gangrene (principal); K29.50 Unspecified chronic gastritis without bleeding; I48.91 Unspecified atrial fibrillation; I25.10 Atherosclerotic heart disease of native coronary artery without angina pectoris; E11.9 Type 2 diabetes mellitus without complications; Z79.82 Long term (current) use of aspirin; I11.0 Hypertensive heart disease with heart failure; I50.9 Heart failure, unspecified; Z86.73 Personal history of transient ischemic attack (TIA), and cerebral infarction without residual deficits; Z87.891 Personal history of nicotine dependence
CPT/HCPCS: 36416; 43239; 82962; 88305; 88342; J2704; J7030

== ENCOUNTER → 2023-09-18 14:46 | Outpatient (BNVA) | payer OTHER, SELFPAY | PROVIDERS: PCP Emergency Medicine Emergency Medical Services; Visit Provider Internal Medicine | DX: I05.9 Rheumatic mitral valve disease, unspecified (principal); I48.91 Unspecified atrial fibrillation; I50.9 Heart failure, unspecified; Z87.891 Personal history of nicotine dependence | CPT/HCPCS: 99214 ==

== ENCOUNTER → 2023-09-27 13:09 | Outpatient (BNVA) | payer OTHER, SELFPAY | PROVIDERS: PCP Emergency Medicine Emergency Medical Services; Visit Provider Surgery | DX: Z09 Encounter for follow-up examination after completed treatment for conditions other than malignant neoplasm (principal) | CPT/HCPCS: 99213 ==

== ENCOUNTER → 2024-01-04 09:01 | Outpatient (BNVA) | payer OTHER, SELFPAY | PROVIDERS: PCP Emergency Medicine Emergency Medical Services; Visit Provider Internal Medicine Pulmonary Disease | DX: R06.09 Other forms of dyspnea (principal); I50.9 Heart failure, unspecified; I48.91 Unspecified atrial fibrillation; I05.9 Rheumatic mitral valve disease, unspecified; I27.20 Pulmonary hypertension, unspecified; J90 Pleural effusion, not elsewhere classified; R91.1 Solitary pulmonary nodule | CPT/HCPCS: 99214 ==

== ENCOUNTER 2024-02-28 08:56 | Outpatient (CLI) | payer OTHER, SELFPAY ==
--- NOTE | 2024-02-28 09:15 | USCV_ITS ---
Magno Puente Age: 78 Gender: M : 1945 Exam Date: 02/28/2024 09:34 Ordering Phys: Fritz Magaña M.D ([email or web address]) Technologist: CT Exam Location: [facility] [place] Indication: cp BP: 145 / 77 HR: 66 Rhythm: Sinus Technical Quality: Adequate MEASUREMENTS (Male / Female) Normal Values 2D ECHO LVOT Diameter 2.0 cm LV Ejection Fraction MOD 4C 48.6 % LV Ejection Fraction MOD 2C 45.4 % LV Ejection Fraction 2C AL 47.5 % LA Diameter 4.8 cm RA Systolic Volume 4C AL 82.1 ml RA Systolic Volume 4C MOD 81.6 ml LA Sys Volume AL 118.0 cm cubed LA Sys Volume Index AL 64.8 cm cubed/m squared Aorta at Sinotubular Diameter 2.4 cm IVC Diameter 2.6 cm M-MODE LA Ao Ratio MM 2.2 AV Cusp Separation MM 1.3 cm DOPPLER AV Peak Velocity 211.0 cm/s LVOT Peak Velocity 85.0 cm/s AV Area Cont Eq vti 1.2 cm squared AV Area Cont Eq pk 1.3 cm squared MV Peak Velocity 168.0 cm/s MV Area PHT 3.4 cm squared Mitral E to A Ratio 3.7 TR Peak Velocity 324.5 cm/s TR Peak Gradient 42.1 mmHg TR Mean Velocity 229.0 cm/s TR Mean Gradient 24.0 mmHg TR Velocity Time Integral 105.1 cm TV Peak E Velocity 114.0 cm/s Right Atrial Pressure 3.0 mmHg Pulmonary Artery Systolic Pressu 45.1 mmHg PV Peak Velocity 58.5 cm/s FINDINGS Left Ventricle Left ventricle is normal in size. LV systolic function is mildly reduced with EF of 40-45 %. Mild global hypokinesis. Global hypokinesis. Right Ventricle Normal in size and function. Right Atrium Dilated Left Atrium Dilated Mitral Valve Bioprosthetic mitral valve. Mean gradient across mitral valve is 4 mmHg. Mild mitral regurgitation Aortic Valve Grossly normal. Mean gradient across aortic valve is 10.5 mmHg with aortic valve area of 1.24 cm2. Mild aortic stenosis. Mild aortic regurgitation. Tricuspid Valve Moderate tricuspid regurgitation. RVSP is 45 to 50 mmHg. This is consistent with moderate pulmonary hypertension Pulmonic Valve Mild pulmonic regurgitation Pericardium Normal Aorta Normal in size IVC Dilated CONCLUSIONS LV systolic function is mildly reduced with EF of 40 to 45%. Biatrial enlargement Bioprosthetic mitral valve is seen. Mild mitral regurgitation. Moderate tricuspid regurgitation Moderate pulmonary hypertension Mild pulmonic regurgitation IVC is dilated. Fritz Magaña MD (Electronically Signed) Final Date: 15 March 2024 20:44 S
== END 2024-02-28 08:57 | disposition home or self-care (01) ==
PROVIDERS: PCP Emergency Medicine Emergency Medical Services; Visit Provider Internal Medicine
DX: I05.9 Rheumatic mitral valve disease, unspecified (principal); I07.1 Rheumatic tricuspid insufficiency; I27.20 Pulmonary hypertension, unspecified; I87.8 Other specified disorders of veins; Z95.2 Presence of prosthetic heart valve; R07.9 Chest pain, unspecified
CPT/HCPCS: 93306

== ENCOUNTER → 2024-03-18 14:13 | Outpatient (BNVA) | payer OTHER, SELFPAY | PROVIDERS: PCP Emergency Medicine Emergency Medical Services; Visit Provider Internal Medicine | DX: I05.9 Rheumatic mitral valve disease, unspecified (principal); I48.91 Unspecified atrial fibrillation; I50.9 Heart failure, unspecified; Z79.01 Long term (current) use of anticoagulants; Z87.891 Personal history of nicotine dependence | CPT/HCPCS: 99214 ==

== ENCOUNTER → 2024-12-24 13:57 | Outpatient (BNVA) | payer OTHER, SELFPAY | PROVIDERS: Visit Provider Internal Medicine | DX: I50.9 Heart failure, unspecified (principal); I48.91 Unspecified atrial fibrillation; Z79.01 Long term (current) use of anticoagulants; Z79.82 Long term (current) use of aspirin; I05.9 Rheumatic mitral valve disease, unspecified; Z86.73 Personal history of transient ischemic attack (TIA), and cerebral infarction without residual deficits; Z87.891 Personal history of nicotine dependence | CPT/HCPCS: 99214 ==